=== PATIENT | female | born 1985 | race Caucasian/White ===

== ENCOUNTER 2016-09-06 21:21 | Emergency (ER) | payer SELFPAY ==
[~2016-09-06] VITALS: Ht 165.1 cm; Wt 64.9 kg
[~2016-09-06 21:21] MED LIST: FERR325T16 PO; IBUP-1222 PO; SENN-1 PO
[2016-09-06] MEDS ORDERED: ASPIRIN 81 MG TABLET CHEW PO ONE (22:30)
[2016-09-06] MEDS ORDERED: ASPIRIN 81 MG TABLET CHEW ONE (22:34)
[2016-09-06 23:44] LABS: BLOOD UREA NITROGEN 11 mg/dL (7-18)
[2016-09-06 23:59] VITALS: BP 104/63
== END 2016-09-07 00:18 | disposition home or self-care (01) ==
LOC: ED 23:15
DX: R07.2 Precordial pain (principal); F15.10 Other stimulant abuse, uncomplicated
CPT/HCPCS: 36415; 71010; 80048; 82040; 84484; 85025; 93005